=== PATIENT | female | born 2000 | race Caucasian/White ===

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

== ENCOUNTER 2018-08-11 17:08 | Emergency (ER) | payer OTHER ==
[~2018-08-11] VITALS: Wt 46.3 kg
[~2018-08-11 17:08] MED LIST changes: +CRAN1CAP PO; +FLUC150T PO; -FLUC150T17 PO; +IBUP-1561 PO; -IBUP400T22 PO
[2018-08-11 17:16] VITALS: BP 142/79; PULSE 105; RESP 20
[2018-08-11] MEDS ORDERED: FLUC150T PO (18:12)
--- NOTE | 2018-08-11 18:42 | ERD ---
ER Documentation Chief Complaint Chief Complaint itchiness to pubic area HPI 18-year-old female patient with no significant past medical history presents to ED complaining of recurrent yeast infections. States that usually when she takes Diflucan, it helps with her symptoms. States that her last menstruation was 1 week ago. States that she is not sexually active. States that she has never had sexual intercourse. Reports that she has some cheesy white discharge. States that she wears pads every single day even though she does not have her menses. Denies any wheezing, shortness of breath, fever, chills, nausea, vomiting, diarrhea, abdominal pain, chest pain, shortness of breath. Denies any dysuria, urgency, frequency. Patient reports that she wants a refill for Diflucan. ROS All systems reviewed and are negative except as per history of present illness. Medications Home Meds Active Scripts Fluconazole* (Diflucan*) 150 Mg Tablet, 150 MG PO ONCE, #1 TAB Prov:LASHONDA TAY PA-C 08/11/18 Fluconazole* (Diflucan*) 150 Mg Tablet, 150 MG PO daily for 5 Days, #5 TAB Prov:SCARLETT,MEREDITH 11/17/17 Cranberry Conc/Ascorbic Acid (CRANBERRY 6,000 MG SOFTGEL) 1 Each Capsule, 1 EACH PO QID for 30 Days, CAP Prov:SCARLETT,MEREDITH 11/17/17 Fluconazole* (Diflucan*) 150 Mg Tablet, 150 MG PO ONCE, #1 TAB Prov:ROSSANA CALLOWAY PA-C 10/07/16 Clotrimazole* (Clotrimazole-7*) Vaginal Cream..g., 1 APPLIC VAG HS for 7 Days, EA Prov:ISAAC HARPER NP 09/25/16 Fluconazole* (Diflucan*) 150 Mg Tablet, 150 MG PO ONCE, #1 TAB Prov:ISAAC HARPER NP 09/25/16 Acetaminophen-Codeine* (Acetaminophen-Cod #3*) 300-30 Mg Tab, 1 TAB PO Q4H PRN for PAIN LEVEL 6-10, #20 TAB Prov:ROSSANA CALLOWAY PA-C 05/10/15 Ibuprofen* (Motrin*) 400 Mg Tab, 400 MG PO Q6H PRN for PAIN AND OR ELEVATED TEMP, #30 TAB Prov:ROSSANA CALLOWAY Shaheen VEGAS 05/10/15 Allergies Allergies: Coded Allergies: No Known Allergy (Unverified , 08/11/18) PMhx/Soc Medical and Surgical Hx: pt denies Medical Hx, pt denies Surgical Hx History of Surgery: No Hx Alcohol Use: No Hx Substance Use: No Hx Tobacco Use: No Smoking Status: Never smoker FmHx Family History: No diabetes, No coronary disease Physical Exam Vitals Vital Signs Date Temp Pulse Resp B/P (MAP) Pulse Ox O2 O2 Flow FiO2 Time Delivery Rate 08/11/18 97.8 105 20 142/79 99 17:16 (100) Physical Exam Const: Uie-zik-suymieofs, well-nourished. In no acute distress. Head: Atraumatic, normocephalic Eyes: Normal Conjunctiva without injection. No purulent discharge. ENT: Normal external ear, nose. Moist oropharynx without tonsillar exudates. Non-erythematous pharynx. Uvula midline. No drooling. No trismus. Neck: No cervical midline tenderness. Full range of motion. No meningismus. No cervical lymphadenopathy. No JVD. Resp: Clear to auscultation bilaterally. No wheezing, rhonchi, rales, or crackles. No accessory muscle use. No retractions. Cardio: Regular rate and rhythm. No murmurs, rubs or gallops. Abd: Soft, nontender, non distended. Normal bowel sounds. No palpable masses. No rebound tenderness. No guarding. Negative McBurney's point. Negative psoas sign. Negative obturator sign. : Cheesy white discharge noted with inflamed external slightly erythematous but no rashes, vesicles noted. Skin: No petechiae or rashes Back: No midline tenderness. No CVA tenderness. Ext: No cyanosis, or edema. Neur: Awake and alert. Normal gait. Normal coordination. Psych: Normal Mood and Affect Procedures/MDM 18-year-old female patient with no significant past medical history presents to the ED complaining of genital itchiness, cheesy discharge. Patient is afebrile and nontoxic-appearing. With external exam, patient appears to have cheesy white discharge. Patient likely has recurrent yeast infections due to an warm environment from wearing pads every single day, strictly instructed patient to avoid providing this environment for recurrent fungal infections. Patient likely has a yeast infection and I will provide a prescription for Diflucan to patient. She reports that the antifungal creams do not work for her symptoms. Low suspicion for STDs, ectopic , ovarian torsion, gastritis, GERD, peptic ulcer disease, cholecystitis, choledocholithiasis, cholangitis, pancreatitis, appendicitis, bowel obstruction, ileus, volvulus, nephrolithiasis, pyelonephritis, hepatitis, perforated viscus, diverticulitis, strangulated/incarcerated hernia, DKA, acute abdomen, mesenteric ischemia or other emergent conditions. Diagnosis: Yeast Infection Discharge medications: Diflucan Follow up with primary care physician in 1-2 days. Instructed patient to return to the ED sooner for any worsening symptoms. Patient's questions were answered. Patient is hemodynamically stable. Patient understood and agreed with discharge plan. Patient discharged stable. Disclaimer: Inadvertent spelling and grammatical errors are likely due to EHR/dictation software use and do not reflect on the overall quality of patient care. Also, please note that the electronic time recorded on this note does not necessarily reflect the actual time of the patient encounter. Departure Diagnosis: Primary Impression: Yeast infection Condition: Stable Patient Instructions: Vaginal Infection: Yeast (Candidiasis) Referrals: [facility] YOU HAVE RECEIVED A MEDICAL SCREENING EXAM AND THE RESULTS INDICATE THAT YOU DO NOT HAVE A CONDITION THAT REQUIRES URGENT TREATMENT IN THE EMERGENCY DEPARTMENT. FURTHER EVALUATION AND TREATMENT OF YOUR CONDITION CAN WAIT UNTIL YOU ARE SEEN IN YOUR DOCTORS OFFICE WITHIN THE NEXT 1-2 DAYS. IT IS YOUR RESPONSIBILITY TO MAKE AN APPOINTMENT FOR FOLOW-UP CARE. IF YOU HAVE A PRIMARY DOCTOR --you should call your primary doctor and schedule an appointment IF YOU DO NOT HAVE A PRIMARY DOCTOR YOU CAN CALL OUR PHYSICIAN REFERRAL HOTLINE AT IF YOU CAN NOT AFFORD TO SEE A PHYSICIAN YOU CAN CHOSE FROM THE FOLLOWING [facility] CLINICS [facility] [address] [facility] [address] [facility] [address] [facility] [address] [facility] [facility] [address] [facility]. [facility] [address] [facility]. [facility] YOU HAVE RECEIVED A MEDICAL SCREENING EXAM AND THE RESULTS INDICATE THAT YOU DO NOT HAVE A CONDITION THAT REQUIRES URGENT TREATMENT IN THE EMERGENCY DEPARTMENT. FURTHER EVALUATION AND TREATMENT OF YOUR CONDITION CAN WAIT UNTIL YOU ARE SEEN IN YOUR DOCTORS OFFICE WITHIN THE NEXT 1-2 DAYS. IT IS YOUR RESPONSIBILITY TO MAKE AN APPOINTMENT FOR FOLOW-UP CARE. IF YOU HAVE A PRIMARY DOCTOR --you should call your primary doctor and schedule and appointment IF YOU DO NOT HAVE A PRIMARY DOCTOR YOU CAN CALL OUR PHYSICIAN REFERRAL HOTLINE AT . IF YOU CAN NOT AFFORD TO SEE A PHYSICIAN YOU CAN CHOSE FROM THE FOLLOWING [facility] INSTITUTIONS: [facility] [address] [place] [address] [facility] [address] [place] [address] [facility] [address] [place] [address] [facility] URGENT CARE/SPECIALTIES Additional Instructions: Call your primary care doctor TOMORROW for an appointment during the next 2-3 days.See the doctor sooner or return here if your condition worsens before your appointment time. LASHONDA TAY PA-C Aug 11, 2018 18:40
== END 2018-08-11 18:32 | disposition home or self-care (01) ==
LOC: FTE 17:08
DX: B37.9 Candidiasis, unspecified (principal)
CPT/HCPCS: 99283

== ENCOUNTER 2018-09-28 21:29 | Emergency (ER) | payer OTHER ==
[~2018-09-28] VITALS: Ht 157.5 cm; Wt 46.4 kg
[2018-09-28 21:40] VITALS: BP 124/60; PULSE 97; RESP 20; Ht 157.5 cm; Wt 46.4 kg
--- NOTE | 2018-09-28 22:08 | ERD ---
ER Documentation Chief Complaint Chief Complaint C/O GERNERALIZED UPPER AP X3 DAYS, - N/V/D HPI Patient is a 18 years old female with no known PMHx presenting to the clinic for epigastric pain x 3 days. Patient describes her pain as burning sensation and rates it 7/10. Patient denies fever, chills, night sweats, emesis, nausea, blo ating, constipation, diarrhea, melena, hematochezia, flatulence. Patient denies taking any OTC medication. ROS All systems reviewed and are negative except as per history of present illness. Medications Home Meds Active Scripts Pantoprazole* (Protonix*) 40 Mg Tablet.dr, 40 MG PO DAILY, #20 TAB Prov:NEVILLE QUINTANILLAC 09/28/18 Fluconazole* (Diflucan*) 150 Mg Tablet, 150 MG PO ONCE, #1 TAB Prov:LASHONDA TAY PA-C 08/11/18 Fluconazole* (Diflucan*) 150 Mg Tablet, 150 MG PO daily for 5 Days, #5 TAB Prov:SCARLETT,MEREDITH 11/17/17 Cranberry Conc/Ascorbic Acid (CRANBERRY 6,000 MG SOFTGEL) 1 Each Capsule, 1 EACH PO QID for 30 Days, CAP Prov:SCARLETT,MEREDITH 11/17/17 Fluconazole* (Diflucan*) 150 Mg Tablet, 150 MG PO ONCE, #1 TAB Prov:ROSSANA CALLOWAY PA-C 10/07/16 Clotrimazole* (Clotrimazole-7*) Vaginal Cream..g., 1 APPLIC VAG HS for 7 Days, EA Prov:ISAAC HARPER NP 09/25/16 Fluconazole* (Diflucan*) 150 Mg Tablet, 150 MG PO ONCE, #1 TAB Prov:ISAAC HARPER NP 09/25/16 Acetaminophen-Codeine* (Acetaminophen-Cod #3*) 300-30 Mg Tab, 1 TAB PO Q4H PRN for PAIN LEVEL 6-10, #20 TAB Prov:ROSSANA CALLOWAYC 05/10/15 Ibuprofen* (Motrin*) 400 Mg Tab, 400 MG PO Q6H PRN for PAIN AND OR ELEVATED TEMP, #30 TAB Prov:ROSSANA CALLOWAY PA-C 05/10/15 Allergies Allergies: Coded Allergies: No Known Allergy (Unverified , 08/11/18) PMhx/Soc Medical and Surgical Hx: pt denies Medical Hx, pt denies Surgical Hx History of Surgery: No Hx Alcohol Use: No Hx Substance Use: No Hx Tobacco Use: No Smoking Status: Never smoker Physical Exam Vitals Vital Signs Date Temp Pulse Resp B/P (MAP) Pulse Ox O2 O2 Flow FiO2 Time Delivery Rate 09/28/18 98.8 97 20 124/60 100 21:40 (81) Physical Exam Const: No acute distress Head: Atraumatic Eyes: Normal Conjunctiva ENT: Normal External Ears, Nose and Mouth. Resp: Clear to auscultation bilaterally Cardio: Regular rate and rhythm, no murmurs Abd: Soft, non tender, non distended. Normal bowel sounds. Negative Crystal sign, negative Rovsing sign, negative McBurney's point tenderness, negative rebound tenderness, no guarding, good Darrell sign, negative Freire Fine sign. Skin: No petechiae or rashes Back: No midline or flank tenderness Neur: Awake and alert Psych: Normal Mood and Affect Result Diagram: 09/28/180 09/28/18 222 Results 24 hrs Laboratory Tests Test 09/28/18 22:20 09/28/18 22:21 09/28/18 22:24 White Blood Count 9.8 10^3/ul Red Blood Count 4.37 10^6/ul Hemoglobin 12.3 g/dl Hematocrit 37.5 % Mean Corpuscular Volume 85.8 fl Mean Corpuscular Hemoglobin 28.1 pg Mean Corpuscular 32.8 g/dl Hemoglobin Concent Red Cell Distribution Width 12.5 % Platelet Count 235 10^3/UL Mean Platelet Volume 10.9 fl Immature Granulocytes % 0.300 % Neutrophils % 56.3 % Lymphocytes % 34.4 % Monocytes % 7.2 % Eosinophils % 1.1 % Basophils % 0.7 % Nucleated Red Blood Cells % 0.0 /100WBC Immature Granulocytes # 0.030 10^3/ul Neutrophils # 5.5 10^3/ul Lymphocytes # 3.4 10^3/ul Monocytes # 0.7 10^3/ul Eosinophils # 0.1 10^3/ul Basophils # 0.1 10^3/ul Nucleated Red Blood Cells # 0.0 10^3/ul Sodium Level 140 mmol/L Potassium Level 3.9 mmol/L Chloride Level 104 mmol/L Carbon Dioxide Level 25 mmol/L Anion Gap 11 Blood Urea Nitrogen 17 mg/dl Creatinine 0.69 mg/dl Est Glomerular Filtrat > 60 mL/min Rate mL/min Glucose Level 92 mg/dl Calcium Level 10.1 mg/dl Total Bilirubin 1.2 mg/dl Direct Bilirubin 0.00 mg/dl Indirect Bilirubin 1.2 mg/dl Aspartate Amino 19 IU/L Transf (AST/SGOT) Alanine 16 IU/L Aminotransferase (ALT/SGPT) Alkaline Phosphatase 43 IU/L Total Protein 8.5 g/dl Albumin 4.9 g/dl Globulin 3.60 g/dl Albumin/Globulin Ratio 1.36 Lipase 53 U/L Urine Color YELLOW Urine Clarity CLEAR Urine pH 7.0 Urine Specific [place] 1.021 Urine Ketones NEGATIVE mg/dL Urine Nitrite NEGATIVE mg/dL Urine Bilirubin NEGATIVE mg/dL Urine Urobilinogen NEGATIVE mg/dL Urine Leukocyte Esterase NEGATIVE Shannan/ul Urine Hemoglobin NEGATIVE mg/dL Urine Glucose NEGATIVE mg/dL Urine Total Protein NEGATIVE mg/dl POC Beta HCG, Qualitative NEGATIVE Current Medications Medications Dose Sig/Rafael Start Time Status Last (Trade) Ordered Route PRN Stop Time Admin Dose Reason Admin 40 mg ONCE ONCE 09/28/18 DC 09/28/18 Pantoprazole PO 22:30 22:57 (Protonix 09/28/18 22:31 Tab) Procedures/MDM Patient was seen and evaluated for epigastric pain. CBC, CMP, Lipase, Urinalysis are grossly unremarkable. Patient abdominal exam is unremarkable and no further workup required as of now. Low suspicion for appendicitis, cholecystitis, pancreatitis, colitis, sepsis. Patient reports resolution of symptoms with pantoprazole PO in ER. Patient is stable and ready for discharge. Patient was advised to f/u with PCP and possible GI. Departure Diagnosis: Primary Impression: Epigastric abdominal pain Condition: Stable Patient Instructions: Epigastric Pain (Uncertain Cause) Referrals: [facility] Additional Instructions: Patient advised to return to the ED immediately for new or worsening symptoms. Patient advised to follow up with primary care provider in the next 24-48 hours. Patient verbalized understanding and agrees with treatment plan and course of action. If patient has no primary care they may follow up with [facility] + [address] [address] or [facility] [address] [place] [address] or [facility] [address] [place] [address] NEVILLE QUINTANILLA PA-C Sep 28, 2018 22:08
[2018-09-28] MEDS ORDERED: PANTOPRAZOLE (EC) 40 MG TAB PO ONE (22:30)
[2018-09-28] MEDS ORDERED: PANT40TA3 PO (23:33)
== END 2018-09-29 00:32 | disposition home or self-care (01) ==
LOC: FTE 21:29
DX: R10.13 Epigastric pain (principal)
CPT/HCPCS: 36415; 80053; 81003; 81025; 83690; 85025; Z7502; Z7610; 99283